=== PATIENT | female | born 1945 | race Caucasian/White ===

== ENCOUNTER → 2023-11-19 15:55 | Outpatient (REF) | payer MEDICARE, OTHER, SELFPAY | LOC: RAD 15:55 | PROVIDERS: FAMILY PHYSICIAN Family Medicine | DX: M51.36 Other intervertebral disc degeneration, lumbar region (principal) | CPT/HCPCS: 72110 ==

== ENCOUNTER → 2023-12-12 09:16 | Outpatient (REF) | payer MEDICARE, OTHER, SELFPAY | LOC: WDC 09:16 | PROVIDERS: ATTENDING PHYSICIAN Family Medicine | DX: Z12.31 Encounter for screening mammogram for malignant neoplasm of breast (principal) | CPT/HCPCS: 77063; 77067 ==

== ENCOUNTER → 2024-01-04 11:04 | Outpatient (REF) | payer MEDICARE, OTHER, SELFPAY | LOC: MRI 11:04 | PROVIDERS: ATTENDING PHYSICIAN Physician Assistant Medical; FAMILY PHYSICIAN Podiatrist Foot & Ankle Surgery | DX: M54.16 Radiculopathy, lumbar region (principal); M47.896 Other spondylosis, lumbar region | CPT/HCPCS: 72146 ==

== ENCOUNTER → 2024-09-23 12:23 | Outpatient (REF) | payer MEDICARE, OTHER, SELFPAY | LOC: RAD 12:23 | PROVIDERS: ATTENDING PHYSICIAN Family Medicine; FAMILY PHYSICIAN Family Medicine | DX: K59.00 Constipation, unspecified (principal) | CPT/HCPCS: 74022 ==

== ENCOUNTER 2024-11-03 06:25 | Day surgery (SDC) | payer MEDICARE, OTHER, SELFPAY | END 2024-11-03 13:59 | disposition home or self-care (01) | LOC: GI 06:25 | PROVIDERS: ATTENDING PHYSICIAN Internal Medicine Gastroenterology | DX: Z12.11 Encounter for screening for malignant neoplasm of colon (principal); D12.2 Benign neoplasm of ascending colon; D12.3 Benign neoplasm of transverse colon; D12.4 Benign neoplasm of descending colon; K57.30 Diverticulosis of large intestine without perforation or abscess without bleeding; K29.50 Unspecified chronic gastritis without bleeding; K44.9 Diaphragmatic hernia without obstruction or gangrene; K31.7 Polyp of stomach and duodenum; K31.89 Other diseases of stomach and duodenum; E61.1 Iron deficiency; Z86.0101 Personal history of adenomatous and serrated colon polyps; Z80.0 Family history of malignant neoplasm of digestive organs | CPT/HCPCS: 45385; 45380; 43239; 88305; 88342 ==

== ENCOUNTER → 2024-12-18 15:02 | Outpatient (REF) | payer MEDICARE, OTHER, SELFPAY | LOC: WDC 15:02 | PROVIDERS: ATTENDING PHYSICIAN Family Medicine | DX: Z12.31 Encounter for screening mammogram for malignant neoplasm of breast (principal) | CPT/HCPCS: 77063; 77067 ==

== ENCOUNTER → 2025-05-20 10:52 | Outpatient (REF) | payer MEDICARE, OTHER, SELFPAY | LOC: RAD 10:52 | PROVIDERS: ATTENDING PHYSICIAN Student in an Organized Health Care Education/Training Program; FAMILY PHYSICIAN Family Medicine | DX: M79.672 Pain in left foot (principal); M81.0 Age-related osteoporosis without current pathological fracture | CPT/HCPCS: 73630 ==

== ENCOUNTER 2025-06-16 14:34 | Inpatient (IN) | payer MEDICARE, OTHER, SELFPAY ==
[2025-06-16] VITALS (8 sets, daily range): BP systolic 124–153; BP diastolic 54–81; BMI 27.3
--- NOTE | 2025-06-16 07:18 | ED.GENMED ---
History of Present Illness
<RAFAT Buck Last Filed: 06/16/25 14:57>
General
Chief Complaint: Rectal Bleeding
Source: patient
Exam Limitations: none
Time Seen by Provider: 06/16/25 06:43
Nursing documentation reviewed up to this point in time: agreed with
History of Present Illness
History of Present Illness:
see MDM
Past History
<RAFAT Buck Last Filed: 06/16/25 14:57>
Past History
ED Past Medical History: HTN and Other (Vertigo, diverticulitis)
ED Past Surgical History: Orthopedic and Other (Cataract surgery)
Social History
Tobacco: Non-smoker
Alcohol: None
Drug: None
Personal:
Living: with family
Employment: Retired
Family History
Family History: Other
Phy Exam
<RAFAT Buck Last Filed: 06/16/25 14:57>
Physical Exam
Physical Exam:
GENERAL: Alert , in no apparent distress
EYE: pupils equal and reactive
NECK: Supple
ENT: o/p clr, mmm.
CARDIAC: Regular rate and rhythm .
LUNGS: Clear breath sounds bilaterally, no acute respiratory distress, no wheezing
abd: normal bowel sounds, nondistended, moderate tenderness to the left abdomen with mild voluntary guarding, no rebound
Rectal with a small amount of red blood, no stool
NEUROLOGICAL: Alert and oriented, no focal neuro deficits
SKIN: Warm and dry, skin intact.
MUSCULOSKELETAL: No edema, well perfused. neg analy's sign
PSYCH: Normal and appropriate interaction.
Course
<RAFAT Buck Last Filed: 06/16/25 14:57>
Orders/Labs/Results
Orders:
Orders
06/16/25 07:10
CT Abd/Pel (IV only)-[facility] only Urgent
Comment:
Reason For Exam: L lower abdominal abd. rectal bleeding
HYDROmorphone [Dilaudid] 0.5 mg IV NOW STA
Ondansetron Injectable [Zofran] 4 mg IV NOW STA
06/16/25 07:11
0.9% Sodium Chloride 1000 ml [Nss] 1,500 ml IV BOLUS
06/16/25 07:16
Electrocardiogram (*1) Urgent
Reason for Study: Syncope
EKG- Treatment ONCE
06/16/25 07:46
Complete Blood Count/With Diff Urgent
Comprehensive Metabolic Panel Urgent
Lactic Acid Urgent
PTT Urgent
Prothrombin Time Urgent
06/16/25 14:08
Admit/Transfer Patient As Directed
Co-Sign Provider:
Level of Care: Inpatient admission
Assign to:: Telemetry
Physician / Group: Vianey Gill maicolists
Diagnosis: bloody colitis/syncope
Reason for Telemetry: Syncope
Date to Stop Telemetry: 06/18/25
Time to Stop Telemetry: 11:00
Reason for Hospitalization: bloody colitis/syncope - IVF, GI evaluation
Expected length of stay greater than two midnights?: Yes
ELOS- Estimated Length of Stay in days: 2
I certify the patient meets the requirements for IP care: Yes
PRN Pain Medication Management As Directed
May give lesser potent ordered pain med per pt: Yes
preference::
Protocol:: Medication orders for pain may be administered in a
manner that supports deferring to patient preference
when the pt is:
- Requesting an ordered lesser potent pain medication.
Least to most potent pain medications are defined
as: acetaminophen < NSAID < tramadol < opioids
(morphine, oxycodone, hydromorphone).
- Requesting a lesser dose of the same medication IF
ORDERED.
- Requesting a less intrusive route of administration
if both routes are prescribed by the provider (PO <
IV).
06/16/25 14:09
Code Status As Directed
Resuscitation Status: Full Code
06/16/25 14:11
Morphine Sulfate 2 mg IV NOW STA
06/16/25 14:30
C DIFF [C difficile Antigen & Toxins] Urgent
ANNELIESE Source: Feces/Stool
Specimen Description:
Date Specimen was Collected: 06/16/25
Time Specimen was Collected: 14:28
Norovirus by PCR Routine
ANNLEIESE Source: Feces/Stool
Specimen Description:
Date Specimen was Collected: 06/16/25
Time Specimen was Collected: 14:28
Stool Culture Routine
ANNELIESE Source: Feces/Stool
Specimen Description:
Date Specimen was Collected: 06/16/25
Time Specimen was Collected: 14:28
06/18/25 11:00
DC Protocol for Telemetry ONCE
Abnormal Lab Results
06/16/25
07:46
WBC 11.2 H 10^3/uL
(4.8-10.8)
Abs Immat Gran (auto) 0.1 H 10^3/uL
(0-0.05)
Absolute Neuts (auto) 9.6 H 10^3/uL
(1.4-6.5)
Absolute Lymphs (auto) 0.6 L 10^3/uL
(1.2-3.4)
Absolute Monos (auto) 0.9 H 10^3/uL
(0.1-0.6)
Neutrophils % 85.3 H %
(42.2-75.2)
Lymphocytes % 5.7 L %
(20.5-51.1)
Glucose 106 H mg/dl
(70-99)
06/16/25 07:46
06/16/25 07:46
Vital Signs
Initial and Last Documented VS:
Initial Vital Signs
Temp Pulse Resp BP Pulse Ox
37.0 C 88 18 153/81 99
06/16/25 06:25 06/16/25 06:25 06/16/25 06:25 06/16/25 06:25 06/16/25 06:25
Last Documented Vital Signs
Temp Pulse Resp BP Pulse Ox
37.0 C 70 19 125/54 97
06/16/25 06:25 06/16/25 14:29 06/16/25 14:29 06/16/25 14:29 06/16/25 14:29
<Katherine Barry DO - Last Filed: 06/16/25 11:18>
Orders/Labs/Results
Orders:
Orders
06/16/25 07:10
CT Abd/Pel (IV only)-[facility] only Urgent
Comment:
Reason For Exam: L lower abdominal abd. rectal bleeding
HYDROmorphone [Dilaudid] 0.5 mg IV NOW STA
Ondansetron Injectable [Zofran] 4 mg IV NOW STA
06/16/25 07:11
0.9% Sodium Chloride 1000 ml [Nss] 1,500 ml IV BOLUS
06/16/25 07:16
Electrocardiogram (*1) Urgent
Reason for Study: Syncope
EKG- Treatment ONCE
06/16/25 07:46
Complete Blood Count/With Diff Urgent
Comprehensive Metabolic Panel Urgent
Lactic Acid Urgent
PTT Urgent
Prothrombin Time Urgent
06/16/25 14:08
Admit/Transfer Patient As Directed
Co-Sign Provider:
Level of Care: Inpatient admission
Assign to:: Telemetry
Physician / Group: Vianey Gill - hospitalists
Diagnosis: bloody colitis/syncope
Reason for Telemetry: Syncope
Date to Stop Telemetry: 06/18/25
Time to Stop Telemetry: 11:00
Reason for Hospitalization: bloody colitis/syncope - IVF, GI evaluation
Expected length of stay greater than two midnights?: Yes
ELOS- Estimated Length of Stay in days: 2
I certify the patient meets the requirements for IP care: Yes
PRN Pain Medication Management As Directed
May give lesser potent ordered pain med per pt: Yes
preference::
Protocol:: Medication orders for pain may be administered in a
manner that supports deferring to patient preference
when the pt is:
- Requesting an ordered lesser potent pain medication.
Least to most potent pain medications are defined
as: acetaminophen < NSAID < tramadol < opioids
(morphine, oxycodone, hydromorphone).
- Requesting a lesser dose of the same medication IF
ORDERED.
- Requesting a less intrusive route of administration
if both routes are prescribed by the provider (PO <
IV).
06/16/25 14:09
Code Status As Directed
Resuscitation Status: Full Code
06/16/25 14:11
Morphine Sulfate 2 mg IV NOW STA
06/16/25 14:30
C DIFF [C difficile Antigen & Toxins] Urgent
ANNELIESE Source: Feces/Stool
Specimen Description:
Date Specimen was Collected: 06/16/25
Time Specimen was Collected: 14:28
Norovirus by PCR Routine
ANNELIESE Source: Feces/Stool
Specimen Description:
Date Specimen was Collected: 06/16/25
Time Specimen was Collected: 14:28
Stool Culture Routine
ANNELIESE Source: Feces/Stool
Specimen Description:
Date Specimen was Collected: 06/16/25
Time Specimen was Collected: 14:28
06/18/25 11:00
DC Protocol for Telemetry ONCE
Abnormal Lab Results
06/16/25
07:46
WBC 11.2 H 10^3/uL
(4.8-10.8)
Abs Immat Gran (auto) 0.1 H 10^3/uL
(0-0.05)
Absolute Neuts (auto) 9.6 H 10^3/uL
(1.4-6.5)
Absolute Lymphs (auto) 0.6 L 10^3/uL
(1.2-3.4)
Absolute Monos (auto) 0.9 H 10^3/uL
(0.1-0.6)
Neutrophils % 85.3 H %
(42.2-75.2)
Lymphocytes % 5.7 L %
(20.5-51.1)
Glucose 106 H mg/dl
(70-99)
06/16/25 07:46
06/16/25 07:46
Vital Signs
Initial and Last Documented VS:
Initial Vital Signs
Temp Pulse Resp BP Pulse Ox
37.0 C 88 18 153/81 99
06/16/25 06:25 06/16/25 06:25 06/16/25 06:25 06/16/25 06:25 06/16/25 06:25
Last Documented Vital Signs
Temp Pulse Resp BP Pulse Ox
37.0 C 70 19 125/54 97
06/16/25 06:25 06/16/25 14:29 06/16/25 14:29 06/16/25 14:29 06/16/25 14:29
<Rita Luis PA-C - Last Filed: 06/16/25 14:57>
MDM/Problems Addressed
Differential Diagnosis Includes:
see MDM
MDM/Problems Addressed:
Note:
CHIEF COMPLAINT(S)
Severe abdominal pain and bloody diarrhea.
HISTORY OF PRESENT ILLNESS
The patient is a 79-year-old female who presented with severe abdominal pain and bloody diarrhea that started yesterday evening. initially, she reported having watery diarrhea approximately ten times, total which then transitioned to passing just
blood in the toilet. She described the volume of blood as about two-thirds of a juice glass, or a couple of ounces. Additionally, she experienced an episode of syncope while being assisted from the bathroom by her , during which she became
pale and broke out into a sweat before fainting. She reports no recent infections, has not taken any medications for pain, and denies nausea or bloating. Her most recent colonoscopy was in October, during which polyps were removed. She has a history
of diverticulitis but does not believe this current pain is similar. She is not on blood thinners, only taking baby aspirin.
no AC
PAST MEDICAL AND SURGICAL HISTORY
The patient had previous colonoscopy with polyp removal and has a history of diverticulitis.
PHYSICAL EXAM
- Abdominal: Tenderness in the abdominal region upon examination.
- Rectal Examination: Performed to assess for bleeding.
PROBLEM LIST
Acute:
- Severe abdominal pain
- Bloody diarrhea
- Syncope
Chronic:
- History of diverticulitis
PLAN
- Obtain a CT scan to evaluate for possible diverticulitis causing the bleeding.
- Administer medication for the abdominal pain.
- Monitor any further episodes of bleeding by collecting samples in a provided container.
- Patient instructed not to eat or drink until further assessment.
- Provide intravenous fluids.
DIFFERENTIAL DIAGNOSIS
The Differential Diagnosis includes, in no particular order and is not limited to:
- Diverticulitis
- Gastrointestinal bleed
- Ischemic colitis
- Inflammatory bowel disease
- Hemorrhoidal bleed
- Colorectal cancer
- Peptic ulcer disease
- Mesenteric ischemia
- Infectious gastroenteritis
- Anal fissure
CARE-UPDATE
06/16/25 - 09:10
Patients pain has improved, and there have been no bleeding episodes since the last assessment. Awaiting CT scan when available.
CARE-UPDATE
06/16/25 - 10:[address] scan indicates colitis with inflammation of the left side of the colon, potentially due to viral infection as the lactic acid levels are normal, ruling out vascular issues. Theres presence of blood in the stool, though hemoglobin
levels remain stable. Admission for overnight observation is advised to manage pain, monitor for continued bleeding, and enable a GI consultation. Pain control, IV fluids, and potentially bland diet are recommended. The decision to stay overnight is
emphasized due to the risk of increased pain returning and previous patient experience with similar symptoms.
pt had another bleeding episode here
will admit
<Rita Luis PA-C - Last Filed: 06/16/25 14:57>
*Pulse Oximetry
SaO2: 99
Oxygen Mode of Delivery: Room air
Patient hypoxic: no (97)
*Critical Care Note
Total Time (30-74mins, 75-104mins- exclusive of procedures): Not Applicable
ED Attending Note
<Rita Luis PA-C - Last Filed: 06/16/25 14:57>
-
Portions of this chart may have been created with voice recognition software.� Occasional wrong word or��sound alike� substitutions may have occurred due to the inherent limitations of voice recognition software.
<Katherine Barry DO - Last Filed: 06/16/25 11:18>
ED Attending Note
Patient seen and examined by attending physician: Yes
I performed the substantive portion of visit, reviewed & personally made and approve the management plan that is documented in note by myself or OSCAR.: Yes
I performed a history and physical exam of patient and discussed management with resident, I reviewed resident's note and agree with documented findings and plan of care.: Yes
ED Attending Note:
79-year-old female presenting to the emergency department for abdominal pain and bloody diarrhea. Patient reports symptoms started yesterday evening. Reports multiple episodes of diarrhea, and then progressed to bloody bowel movements. She also
notes episode of syncope, after going to the bathroom, witnessed by with associated diaphoresis. Does note colonoscopy recently in October, status post removal of polyps. Reports history of diverticulitis, however pain different. She is not
on any anticoagulation. Vital signs on arrival are normal
On exam, patient with generalized abdominal discomfort. Vital signs within normal limits. No present hemodynamic instability. Labs obtained prior to my assessment, normal hemoglobin, normal lactic acid. Patient also with CT abdomen pelvis which
shows diffuse colitis. Patient's pain is improved after pain medication. Regarding syncope, EKG within normal limits without concern for arrhythmia. Labs otherwise reassuring. However in setting of syncope, diffuse colitis, bloody bowel
movements, plan for admission for continued IV hydration, pain control. Will defer with GI regarding antibiotics.
Discharge Plan
Departure
Patient Disposition: Admit
Date of Disposition: 06/16/25
Time of Disposition: 10:19
Admit to: Med/Surg
Presentation/result/management discussed w/ accepting MD/DO: Hospitalist
Condition: Fair
Covid-19: Not Applicable
Discharge Problem:
Colitis, GI bleed
Interventions
Interventions:
*Risk Screen - Suicide Last Done: 06/16/25 06:25
*General Assessment Last Done: 06/16/25 08:00
*Neglect/Abuse Screening Last Done: 06/16/25 08:00
*ED COVID-19 Vaccine History Last Done: 06/16/25 14:29
*ED Influenza Vaccine History Last Done: 06/16/25 14:29
[facility] Fall Risk Assessment Tool Last Done: 06/16/25 08:00
HJ-Ylqcmg-Oktenrzixr Assessment Last Done: 06/16/25 08:00
ED- Cardiac Assessment Last Done: 06/16/25 08:00
ED- Pulmonary Assessment Last Done: 06/16/25 08:00
[2025-06-16] MEDS: DILAUDID 0.5 MG IV (07:46)
[2025-06-16] MEDS: ZOFRAN 4 MG IV (07:47)
[2025-06-16] MEDS: NSS 1500 IV (07:51)
[2025-06-16 08:08] LABS: Hematocrit 39.9 % (37.0-47.0); Hemoglobin 13.7 g/dL (12.0-16.0); Mean Corp Hgb Conc. 34.3 g/dL (33.0-37.0); Mean Corpuscular Volume 88.3 fL (81.0-99.0); Nucleated Red Blood Cells % 0 %; Platelet Count 234 10^3/uL (130-400); Red Cell Dist. Width 12.9 % (11.5-14.5)
[2025-06-16 08:20] LABS: ALT (SGPT) 15 U/L (0-35); AST (SGOT) 22 U/L (14-36); Albumin 4.2 g/dl (3.5-5.0); Alkaline Phosphatase 82 U/L (38-126); Blood Urea Nitrogen 10 mg/dl (7-17); Calcium 8.6 mg/dl (8.4-10.2); Carbon Dioxide 25 mmol/L (22-30); Chloride 104 mmol/L (98-107); Estimated Creatinine Clearance 53 ml/min; Glucose 106 mg/dl (70-99); INR 1.08; PT 13.8 Sec (11.4-14.6); Potassium 3.8 mmol/L (3.5-5.1); Sodium 135 mmol/L (135-145); Total Protein 6.7 g/dl (6.3-8.2); eGFR > 60.00
[2025-06-16 08:21] LABS: APTT 25.2 Sec (23.4-35.0)
--- NOTE | 2025-06-16 13:56 | HPS.HSE ---
Family Physician
-
Family Physician: Drake Lnag MD
Chief Complaint
-
abd pain, bloody diarrhea
History of Present Illness
79 y/o F, hx of HTN, HLD presenting to ER with severe abd pain and bloody diarrhea. Onset was yesterday evening. She reports feeling well yesterday morning and bought creamy/asparagus soup from a store. A few hours after ingesting, she reports onset
of cramping abd pain in LLQ. Pain was 8/10, nonradiating. Later she developed several instances of watery, later becoming bloody diarrhea. When being assisted to the bathroom by her , she had a syncopal event with pallor and sweats. She
denies any travel or sick contacts. No new meds. Reports recent colonoscopy in October with polyps removed.
Medical History
Past Medical History
Past Medical History: Reports Other (HTN, HLD )
Past Surgical History: Reports Orthopedic
Social History
Tobacco: Non-smoker
Alcohol: None
Drug: None
Personal:
Living: With Family
Family History
Family History: Not pertinent
Allergies / Home Medications
Allergies reflects when Allergies were last updated in [employer].
Home Medications with original date entered in [employer]
Allergy/Medication List:
Allergies
Allergy/AdvReac Type Severity Reaction Status Date / Time
pneumococcal vaccine Allergy Swelling Verified 06/16/25 06:25
Home Medications
denosumab 60 mg/mL subcutaneous syringe (Prolia) 60 mg SQ [id number] 03/10/16
cholecalciferol (vitamin D3) 25 mcg (1,000 unit) capsule (Vitamin D3) 2,000 unit PO DAILY 03/03/18
acetaminophen 325 mg tablet 650 mg PO Q4HPRN PRN MILD PAIN 06/16/25
amlodipine 5 mg tablet (Norvasc) 5 mg PO DAILY 06/16/25
ascorbic acid (vitamin C) 500 mg tablet (Vitamin C) 1,000 mg PO DAILY 06/16/25
calcium 315 mg (as citrate)-vitamin D3 6.25 mcg (250 unit) tablet (Citracal + Vitamin D Maximum) 1 tab PO DAILY 06/16/25
fluoxetine 10 mg capsule (Prozac) 30 mg PO DAILY 06/16/25
omeprazole 20 mg tablet,delayed release 20 mg PO DAILY 06/16/25
rizatriptan 10 mg tablet (Maxalt) 0 mg PO .COMPLEX 06/16/25
rosuvastatin 20 mg tablet (Crestor) 20 mg PO DAILY 06/16/25
vitamins A,C,O-takw-sfqesl 2,148 mcg-113 mg-45 mg-17.4 mg tablet (PreserVision AREDS) 2 tab PO BID 06/16/25
Review of Systems
-
A 12 point ROS was completed and negative except as noted: Yes
Physical Exam
Vital Signs
Vital Signs
Temp Pulse Resp BP Pulse Ox
98.6 F 88 18 130/54 96
06/16/25 06:25 06/16/25 06:25 06/16/25 06:25 06/16/25 09:00 06/16/25 09:15
Physical Exam
General: No Apparent Distress
HEENT: NormoCephalic and Anicteric
Respiratory: No Wheezes
Cardiac: S1/S2 and Regular Rhythm
GI: Soft and Tender (LLQ)
Neuro: AO x 3
Psych: Calm
Laboratory Results
-
06/16/25 07:46
06/16/25 07:46
Laboratory Results
PT 13.8 Sec (11.4-14.6) 06/16/25 07:46
INR 1.08 06/16/25 07:46
APTT 25.2 Sec (23.4-35.0) 06/16/25 07:46
Lactic Acid 1.6 mmol/L (0.7-2.0) 06/16/25 07:46
Total Bilirubin 0.5 mg/dl (0.2-1.3) 06/16/25 07:46
AST 22 U/L (14-36) 06/16/25 07:46
ALT 15 U/L (0-35) 06/16/25 07:46
Alkaline Phosphatase 82 U/L (38-126) 06/16/25 07:46
Data Reviewed
-
CT Scan: Report Reviewed by me
Lab Data: Labs Reviewed by me
Impression/Plan
-
Assessment:
Acute colitis with bloody diarrhea
- possibly related to foodborne illness (soup)
- check stool studies
- pain control, anti-emetics
- consider IV abx if C. diff negative
- clears/IVF
- GI consultation
- Recent Cscope 11/06 with polyps removed
Syncope
- suspect vagal in setting acute GI pathology
- monitor tele
Essential HTN
- continue Amlodipine
HLD - statin
DVT ppx: SCDs
Code: Full
[2025-06-16] MEDS: MORPHINE SULFATE 2 MG IV (14:24)
--- NOTE | 2025-06-16 16:15 | CON.GI ---
Addendum entered and electronically signed by Magdaleno Tucker MD 06/16/25 18:58:
I personally performed a history and physical exam of the patient and discussed management with the resident. I reviewed the resident's note and agree with the documented findings and plan of care HPI/CC.
This is a 79-year-old female no significant past medical history presenting with acute abdominal pain, diarrhea that became bloody. Pain was left lower quadrant. Had a vasovagal syncopal episode using the bathroom. No fevers, no sick contacts, no
travel, only unusual food was asparagus soup but her also had it. Recently had a colonoscopy October [address] Butler with colon polyps, left-sided diverticulosis, no other findings. During this admission, she was found to have a white
blood cell count of 11.2, normal chemistry, imaging consistent with acute colitis throughout the descending and sigmoid colon. Most likely I think she has infectious colitis. Stool studies are pending. Clear liquid diet will be trialed and will
advance to low fiber tomorrow if she tolerates and continues to feel well. In the interim, continue IV fluids, antiemetics, analgesia. For now, will defer antibiotics pending clinical status and stool studies. Discussed with hospitalist.
Original Note:
Consultation
-
Date/Time Consultation Requested: 06-16-25
Date/Time Consultation Performed: 06-16-25
Requesting Provider: Dr. Vianey Gill
Performing Provider: Dr. Magdaleno Tucker
Reason for Consultation: Colitis
Medical History
Chief Complaint / HPI
Chief Complaint: Abdominal pain and blood in stool
History of Present Illness:
Lakia Limon, 79-year-old with medical history significant for hypertension, hypercholesterolemia, GERD, multiple colon polyps and diverticulosis, developed abdominal pain on the evening of 06-15-25. Reports having asparagus soup from a store a few
hours before the pain began. She started experiencing generalized abdominal cramps that localized to the LLQ. Also had watery diarrhea which became bloody. She experienced a syncopal event when using the bathroom. She came to the hospital with
worsening pain, bloody stools and after the syncopal events. No fevers but does report some chills. No nausea or vomiting. No known sick contacts.
Past Medical History
Past Medical History: GERD, HTN, Hypercholesterolemia and Other (polys; diverticulosis)
Past Surgical History: Orthopedic
Social History
Tobacco: Non-Smoker
Alcohol: None
Personal:
Living: With Family
Family History
Family History: Reviewed & Not Pertinent
Allergies / Home Medications
Allergy/AdvReac Type Severity Reaction Status Date / Time
pneumococcal vaccine Allergy Swelling Verified 06/16/25 06:25
�Medication �Instructions �Recorded
denosumab 60 mg/mL subcutaneous 60 mg SQ [id number] 03/10/16
syringe (Prolia)
cholecalciferol (vitamin D3) 25 2,000 unit PO DAILY 03/03/18
mcg (1,000 unit) capsule (Vitamin
D3)
acetaminophen 325 mg tablet 650 mg PO Q4HPRN PRN MILD PAIN 06/16/25
amlodipine 5 mg tablet (Norvasc) 5 mg PO DAILY 06/16/25
ascorbic acid (vitamin C) 500 mg 1,000 mg PO DAILY 06/16/25
tablet (Vitamin C)
calcium 315 mg (as 1 tab PO DAILY 06/16/25
citrate)-vitamin D3 6.25 mcg (250
unit) tablet (Citracal + Vitamin D
Maximum)
fluoxetine 10 mg capsule (Prozac) 30 mg PO DAILY 06/16/25
omeprazole 20 mg tablet,delayed 20 mg PO DAILY 06/16/25
release
rizatriptan 10 mg tablet (Maxalt) 0 mg PO .COMPLEX 06/16/25
rosuvastatin 20 mg tablet (Crestor) 20 mg PO DAILY 06/16/25
vitamins A,C,V-hwmb-jflsar 2,148 2 tab PO BID 06/16/25
mcg-113 mg-45 mg-17.4 mg tablet
(PreserVision AREDS)
Review of Systems
-
All other systems: A 12 pt ROS was Negative except as stated above in HPI
Vital Signs
Temp Pulse Resp BP Pulse Ox
98.6 F 70 19 125/54 97
06/16/25 06:25 06/16/25 14:29 06/16/25 14:29 06/16/25 14:29 06/16/25 14:29
Physical Exam
Exam
General: Other (mild distress from pain)
HEENT: Normocephalic and Anicteric
Respiratory: Clear and Non Labored Respirations
Cardiac: S1/S2 and Regular Rhythm; Negative Murmur or Rub
GI: Soft, Non Distended, Normal Bowel Sounds and Tender (LLQ > LUQ)
Musculoskeletal: No Clubbing, No Cyanosis and No Edema
Neuro: Awake, Alert, Oriented and Nonfocal/Grossly Intact
Psych: Calm
Results
WBC 11.2 10^3/uL (4.8-10.8) H 06/16/25 07:46
Hgb 13.7 g/dL (12.0-16.0) 06/16/25 07:46
Hct 39.9 % (37.0-47.0) 06/16/25 07:46
MCV 88.3 fL (81.0-99.0) 06/16/25 07:46
Plt Count 234 10^3/uL (130-400) 06/16/25 07:46
Absolute Neuts (auto) 9.6 10^3/uL (1.4-6.5) H 06/16/25 07:46
PT 13.8 Sec (11.4-14.6) 06/16/25 07:46
INR 1.08 06/16/25 07:46
APTT 25.2 Sec (23.4-35.0) 06/16/25 07:46
Sodium 135 mmol/L (135-145) 06/16/25 07:46
Potassium 3.8 mmol/L (3.5-5.1) 06/16/25 07:46
Chloride 104 mmol/L (98-107) 06/16/25 07:46
Carbon Dioxide 25 mmol/L (22-30) 06/16/25 07:46
BUN 10 mg/dl (7-17) 06/16/25 07:46
Creatinine 0.8 mg/dL (0.6-1.0) 06/16/25 07:46
Calcium 8.6 mg/dl (8.4-10.2) 06/16/25 07:46
Total Bilirubin 0.5 mg/dl (0.2-1.3) 06/16/25 07:46
AST 22 U/L (14-36) 06/16/25 07:46
ALT 15 U/L (0-35) 06/16/25 07:46
Alkaline Phosphatase 82 U/L (38-126) 06/16/25 07:46
Diagnostic Image Results:
06-16-25: CT A-P: Acute colitis throughout the descending and sigmoid colon. Small hiatal hernia.
Prior GI Procedures:
EGD:
11-03-24: - No gross lesions in the entire esophagus.
- Z-line regular, 35 cm from the incisors.
- 3 cm hiatal hernia.
- A few gastric polyps. Biopsied.
- Erythematous mucosa in the antrum. Biopsied.
- Normal examined duodenum. Biopsied.
Colonoscopy:
11-03-24: - The examined portion of the ileum was normal.
- Two 3 to 4 mm polyps in the ascending colon, removed
with a cold snare. Resected and retrieved.
- One 2 mm polyp in the transverse colon, removed with
a jumbo cold forceps. Resected and retrieved.
- One 2 mm polyp in the descending colon, removed with
a jumbo cold forceps. Resected and retrieved.
- Diverticulosis in the sigmoid colon and in the
descending colon.
Assessment / Plan
-
Lakia Limon, 79-year-old with medical history significant for hypertension, hypercholesterolemia, GERD, multiple colon polyps and diverticulosis, developed abdominal pain on the evening of 06-15-25. Reports having asparagus soup from a store a few
hours before the pain began. She started experiencing generalized abdominal cramps that localized to the LLQ. Also had watery diarrhea which became bloody. She experienced a syncopal event when using the bathroom. She came to the hospital with
worsening pain, bloody stools and after the syncopal events. No fevers but does report some chills. No nausea or vomiting. No known sick contacts.
Impression:
* Acute sigmoid and descending colon colitis
* Syncope in setting of acute colitis
* History of colon and gastric polyps
* Small hiatal hernia
* Chronic GERD
* Primary hypertension
* Hyperlipidemia
* Osteoporosis
Recommendations
- Possibly foodborne; negative C. diff; other stool studies pending.
- IV hydration, antiemetics and analgesia.
- Trial of clear liquid; advance as tolerated.
- Afebrile with stable vitals; defer antibiotics pending stool studies.
-
-
Thank you for consultation and allowing me to participate in the patient's care. Please call the supervisor electronics inspection GI physician during the after hours with any questions or concerns.
[2025-06-16] MEDS: NSS 1000 IV (17:10)
[2025-06-16] MEDS: ZOSYN 50 IV (18:05)
[2025-06-16] MEDS: TORADOL 10 MG IV (19:57)
[2025-06-17] MEDS: ZOSYN 50 IV ×2 (00:06→05:54)
[2025-06-17 03:45] VITALS: BP 117/48
[2025-06-17 06:23] LABS: Hematocrit 33.9 % (37.0-47.0); Hemoglobin 11.3 g/dL (12.0-16.0); Mean Corp Hgb Conc. 33.3 g/dL (33.0-37.0); Mean Corpuscular Volume 89.4 fL (81.0-99.0); Platelet Count 189 10^3/uL (130-400); Red Cell Dist. Width 13.1 % (11.5-14.5)
[2025-06-17 06:51] LABS: Blood Urea Nitrogen 5 mg/dl (7-17); Calcium 7.4 mg/dl (8.4-10.2); Carbon Dioxide 26 mmol/L (22-30); Chloride 110 mmol/L (98-107); Estimated Creatinine Clearance 53 ml/min; Glucose 92 mg/dl (70-99); Potassium 3.9 mmol/L (3.5-5.1); Sodium 136 mmol/L (135-145); eGFR > 60.00
[2025-06-17] MEDS: PROTONIX 40 MG PO (07:15)
[2025-06-17] MEDS: PROZAC 30 MG PO (07:15)
[2025-06-17] MEDS: NORVASC 5 MG PO (07:20)
[2025-06-17 07:49] VITALS: BP 123/51
--- NOTE | 2025-06-17 11:03 | W.PN.HOSP.TC ---
Today's Communication/Plan
-
PT eval. DC home if tolerates LRD.
Assessment / Plan
Assessment / Plan
Assessment:
Acute colitis with bloody diarrhea
- possibly related to foodborne illness (soup)
- stool studies so far negative
- pain control, anti-emetics
- Empiric Zosyn x 5 days, at dc switch to Augmentin
- diet: low residue
- GI consult appreciated and f/u OP GI office in 2025.
- Recent Cscope 11/06 with polyps removed
Syncope
- suspect vagal in setting acute GI pathology
- monitor tele
Essential HTN
- continue Amlodipine
HLD - statin
DVT ppx: SCDs
Code: Full
Anticipated Discharge: Today
Subjective/Interval History
-
Date of Service: June 17, 2025
reports improving pain and no further bloody BMs
Objective Data
-
Labs:
Laboratory Results
06/17/25
05:51
WBC 7.2
Hgb 11.3 L
Hct 33.9 L
Plt Count 189
Sodium 136
Potassium 3.9
Chloride 110 H
Carbon Dioxide 26
BUN 5 L
Creatinine 0.8
Glucose 92
Calcium 7.4 L
Vital Signs:
Vital Signs
Temp Pulse Resp BP Pulse Ox
97.7 F 66 17 123/51 96
06/17/25 07:49 06/17/25 07:49 06/17/25 07:49 06/17/25 07:49 06/17/25 07:49
Physical Exam
-
General: No Apparent Distress
HEENT: Normocephalic and Atraumatic
Respiratory: Negative Wheezes
Cardiac: Regular Rhythm and S1/S2
GI: Soft
Genito-urinary: No Costovertebral Tender
Musculoskeletal: No Edema
Neuro: AO x 3
Psych: Calm
Data Reviewed
-
Total Time Spent with Patient (in minutes): 42
Labs: Labs Reviewed by me
--- NOTE | 2025-06-17 11:07 | W.DCSUMMARY ---
Discharge Summary
Discharge Data
Date of Admission: 06/16/25
Date of Discharge: 06/17/25
-
Pending Results: No
Hospital Course
79 y/o F, HTN, HLD presented to ER on 06/16 with LLQ abd pain and diarrhea with blood. Stool studies were negative and patient was started on Zosyn for infectious colitis. GI evaluated and agreed with assessment. Patients pain improved 24 hours later
and also had no further bloody bowel movements. She was transitioned from clears to Low res diet which she tolerated. She was discharged home with Plan for OP GI follow up.
Discharge Plan
-
Patient Disposition: Home (Routine Discharge)
Discharge Diagnosis/Procedures: Infectious colitis
Condition: Fair
Diet: Low Residue
Activity: As tolerated
Bathing Restrictions: None
Referrals:
Drake Lang MD [Family Provider]
Aretha Butler MD [Active, Gastroenterology] - 07/14/25 11:30 am
Referral Note: GI team arranged this appointment to follow up after this hospitalization
Prescriptions:
New
amoxicillin-pot clavulanate 875-125 mg Tablet
1 tab PO Q12 Qty: 10 0RF
Continued
Prolia 60 MG/ML syringe
60 mg SQ [id number]
cholecalciferol (vitamin D3) [Vitamin D3] 1,000 UNIT capsule
2,000 unit PO DAILY
rizatriptan [Maxalt] 10 mg Tablet
0 mg PO .COMPLEX
Rx Instructions:
take 1 tab at onset of headache; if no relief may repeat 1 tab after at least 2 hrs; max = 3 tabs/24 hr
amlodipine [Norvasc] 5 mg Tablet
5 mg PO DAILY
ascorbic acid (vitamin C) [Vitamin C] 500 mg Tablet
1,000 mg PO DAILY
fluoxetine [Prozac] 10 mg Capsule
30 mg PO DAILY
rosuvastatin [Crestor] 20 mg Tablet
20 mg PO DAILY
omeprazole 20 mg Tablet,Delayed Release (Dr/Ec)
20 mg PO DAILY
calcium citrate-vitamin D3 [Citracal + D Maximum] 315 mg-6.25 mcg (250 unit) Tablet
1 tab PO DAILY
PreserVision AREDS 2,148 mcg-113 mg-45 mg-17.4mg Tablet
2 tab PO BID
acetaminophen 325 MG tablet
650 mg PO Q4HPRN PRN (Reason: MILD PAIN)
Discharge Orders:
Discharge Patient (As Directed); Ordered 06/17/25
Ordered By: Vianey Gill
Discharge Date and Time
Print Language: BRITISH
[2025-06-17 11:08] VITALS: BP 128/62
--- NOTE | 2025-06-17 13:47 | CM ---
Alert awake oriented patient who lives with Ed in a 1 story home with one step to enter. She is independent in all ADLs. No adaptive devices.She drives. Offered VN she declined need. She said her will drive her home.
No VN /SNF hx
Pharmacy [facility]
PCP Dr Wetzel
PLAN Home no needs
[2025-06-17 14:39] VITALS: BP 135/55
== END 2025-06-17 14:47 | disposition home or self-care (01) | DRG 391 ==
LOC: 3 WEST ACU 14:34
PROVIDERS: Physician Assistant; ADMITTING PHYSICIAN Internal Medicine; CONSULT PHYSICIAN Internal Medicine Gastroenterology; EMERGENCY PHYSICIAN Student in an Organized Health Care Education/Training Program; FAMILY PHYSICIAN Radiology Vascular & Interventional Radiology
DX: A09 Infectious gastroenteritis and colitis, unspecified (principal); K57.33 Diverticulitis of large intestine without perforation or abscess with bleeding; R55 Syncope and collapse; I10 Essential (primary) hypertension; E78.00 Pure hypercholesterolemia, unspecified; K21.9 Gastro-esophageal reflux disease without esophagitis; Z86.0100 Personal history of colon polyps, unspecified
CPT/HCPCS: 74177; 80048; 80053; 83605; 85025; 85027; 85610; 85730; 87045; 87046; 87324; 87427; 87449; 87798; 93005; 96361; 96374; 96375; 99285; Q9967